=== PATIENT | male | born 1985 | race Caucasian/White ===

== ENCOUNTER 2018-10-16 07:36 | Emergency (ER) | payer BC ==
[2018-10-16 08:29] LABS: BASOPHIL % 0.3 % (0-2); PLATELET COUNT 153 x10^3mcL (130-400); RED CELL DISTRIBUTION WIDTH 12.8 % (11.5-14.5)
[2018-10-16 08:36] LABS: CALCIUM 8.9 mg/dL (8.5-10.1); CARBON DIOXIDE 26.9 mmol/L (21-32); CHLORIDE SERUM 96 mmol/L (98-107); CREATININE SERUM 0.9 mg/dL (0.7-1.3); GFR1 > 60 mL/min; GLUCOSE SERUM 88 mg/dL (74-106); POTASSIUM SERUM 3.1 mmol/L (3.5-5.1); SODIUM SERUM 134 mmol/L (136-145)
[2018-10-16 08:40] LABS: ALBUMIN 3.8 g/dL (3.4-5.0); ALKALINE PHOSPHATASE 94 U/L (46-116); ALT/SGPT 31 U/L (16-63); AMYLASE 69 U/L (25-115); AST/SGOT 47 U/L (15-37); BILIRUBIN TOTAL 1.6 mg/dL (0.20-1.00); LIPASE 255 IU/L (73-393)
[2018-10-16 08:42] LABS: TOTAL PROTEIN, SERUM 8.3 g/dL (6.4-8.2)
[2018-10-16 10:39] LABS: UA SPECIFIC GRAVITY 1.025 (1.005-1.035); microscopic required? YES; urine erythrocyte NEGATIVE (NEGATIVE)
[2018-10-16 10:59] LABS: AMPHETAMINE QUAL UR NONE DETECTED (See below)
[2018-10-16 11:48] VITALS: BP 138/83
== END 2018-10-16 11:48 | disposition home or self-care (01) ==
LOC: ED 07:36
PROVIDERS: Emergency Medicine
DX: E87.8 Other disorders of electrolyte and fluid balance, not elsewhere classified (principal); R11.10 Vomiting, unspecified; R19.7 Diarrhea, unspecified; F19.90 Other psychoactive substance use, unspecified, uncomplicated
CPT/HCPCS: J2060; J2405; J3490

== ENCOUNTER 2018-10-24 02:15 | Emergency (ER) | payer BC ==
[~2018-10-24] VITALS: Ht 175.3 cm; Wt 78.0 kg
[2018-10-24 02:41] VITALS: Ht 175.3 cm; Wt 78.0 kg
[2018-10-24 06:11] VITALS: BP 123/75
== END 2018-10-24 06:49 | disposition home or self-care (01) ==
LOC: ED 02:15
DX: F41.9 Anxiety disorder, unspecified (principal); R11.2 Nausea with vomiting, unspecified; R19.7 Diarrhea, unspecified; R10.9 Unspecified abdominal pain
CPT/HCPCS: J1885; J2060; J2270; J2405; J7030